=== PATIENT | female | born 1940 | race Caucasian/White ===

== ENCOUNTER 2017-07-15 19:00 | Emergency (ER) | payer MEDICARE, BC ==
--- NOTE | 2017-07-15 19:17 | EDM.PDOC ---
ED HPI GENERAL MEDICAL PROBLEM - General Chief Complaint: Cardiovascular Problem Stated Complaint: HEART ISSUES Time Seen by Provider: 07/15/17 19:10 Source of Information: Reports: Patient, Old Records History Limitations: Reports: No Limitations - History of Present Illness INITIAL COMMENTS - FREE TEXT/NARRATIVE: 76 yo female presents with mild anterior chest pressure and an irregular/fast heart beat. She has a pHx of intermittent afib controlled with sotalol. Has not missed any doses. The last time she experienced this situation was last August and she ended up converting back to a regular, non-atrial fib rhythm in the ER before any interventions were started. Sx's tonight started about 1730h. Has no nausea, SOB, or diaphoresis. Thought at first her sx's were from indigestion. 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 agricultural education professor. 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) (none) chest tightness Pain Score (Numeric/FACES): 2 - Related Data Allergies Allergy/AdvReac Type Severity Reaction Status Date / Time cephalexin monohydrate Allergy Unknown Rash Verified 07/15/17 19:08 [From Keflex] codeine Allergy Dizziness Verified 07/15/17 19:08 Iodinated Contrast- Oral and Allergy Swelling Verified 07/15/17 19:08 IV Dye [Iodinated Contrast Media - IV Dye] medroxyprogesterone acetate Allergy Change Verified 07/15/17 19:08 [From Provera] Mental Status captopril AdvReac Cough Verified 07/15/17 19:08 enalapril maleate AdvReac Nausea Verified 07/15/17 19:08 [From Vasotec] enalaprilat dihydrate AdvReac Nausea Verified 07/15/17 19:08 [From Vasotec] lisinopril AdvReac Cough Verified 07/15/17 19:08 metoprolol AdvReac Leg Cramps Verified 07/15/17 19:08 terazosin HCl [From Hytrin] AdvReac Fatigue Verified 07/15/17 19:08 Home Meds: Home Meds Acetaminophen [Tylenol Extra Strength] 500 mg PO Q6HR PRN 08/21/13 [History] Calcium Carbonate 600 mg PO DAILY 08/21/13 [History] Hydrochlorothiazide 25 mg PO DAILY 08/21/13 [History] Latanoprost [Xalatan] 1 drp EYEBOTH BEDTIME 08/21/13 [History] Levothyroxine Sodium [Synthroid] 75 mcg PO DAILY 08/21/13 [History] Magnesium 250 mg PO DAILY 08/21/13 [History] Melatonin 3 mg PO BEDTIME PRN 08/21/13 [History] Polyethylene Glycol 3350 [Miralax] 17 gm PO DAILY PRN 08/21/13 [History] Pravastatin [Pravachol] 40 mg PO BEDTIME 08/21/13 [History] Sotalol [Betapace, Sorine] 80 mg PO BID 08/21/13 [History] amLODIPine [Norvasc] 5 mg PO DAILY 08/21/13 [History] Cholecalciferol (Vitamin D3) [Vitamin D3] 2,000 unit PO DAILY 07/12/15 [History] Docusate Sodium [Colace] 200 mg PO DAILY 07/12/15 [History] Isosorbide Mononitrate [Imdur] 60 mg PO BID 07/12/15 [History] Naproxen Sodium [Aleve] 220 mg PO ASDIRECTED PRN 07/12/15 [History] Nitroglycerin [Nitrostat] 0.4 mg SL ASDIRECTED PRN 07/12/15 [History] Pantoprazole [Protonix] 40 mg PO DAILY 07/12/15 [History] diphenhydrAMINE [Benadryl] 25 mg PO BEDTIME PRN 07/12/15 [History] ClonazePAM [KlonoPIN] 0.5 mg PO ASDIRECTED PRN 07/15/17 [History] Warfarin Sodium [Warfarin Sodium] 2.5 mg PO DAILY 07/15/17 [History] prednisoLONE Acetate [Pred Forte 1% Ophth Susp] 1 drop EYEBOTH QID 07/15/17 [ History] Past Medical History HEENT History: Reports: Cataract, Hard of Hearing, Impaired Vision Cardiovascular History: Reports: Afib, Angina, Heart Murmur, High Cholesterol, Hypertension, Pacemaker, SOB on Exertion, Stents Gastrointestinal History: Reports: Chronic Constipation, Hemorrhoids 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: Musculoskeletal History: Reports: Arthritis, Back Pain, Chronic Neurological History: Reports: Neuropathy, Peripheral, Other (See Below) Other Neuro History: toes Endocrine/Metabolic History: Reports: Hypothyroidism - Infectious Disease History Infectious Disease History: Reports: Chicken Pox, Measles, Mumps - Past Surgical History Cardiovascular Surgical History: Reports: Coronary Artery Stent, Pacer Female Surgical History: Reports: Breast Biopsy, Hysterectomy, Salpingo- Oophorectomy Musculoskeletal Surgical History: Reports: Shoulder Surgery, Other (See Below) Social & Family History - Tobacco Use Smoking Status *Q: Never Smoker Second Hand Smoke Exposure: No - Caffeine Use Caffeine Use: Reports: Coffee - Recreational Drug Use Recreational Drug Use: No ED ROS GENERAL - Review of Systems Review Of Systems: See Below Constitutional: Reports: No Symptoms HEENT: Reports: No Symptoms Respiratory: Reports: No Symptoms Cardiovascular: Reports: Chest Pain (mild central, anterior chest tightness), Palpitations Endocrine: Reports: No Symptoms GI/Abdominal: Reports: No Symptoms : Reports: No Symptoms Musculoskeletal: Reports: No Symptoms Skin: Reports: No Symptoms Neurological: Reports: No Symptoms ED EXAM, GENERAL - Physical Exam Exam: See Below Exam Limited By: No Limitations General Appearance: Alert, WD/WN, No Apparent Distress Eye Exam: Bilateral Eye: Normal Inspection Ears: Normal External Exam, Normal Canal, Hearing Grossly Normal, Normal TMs Ear Exam: Bilateral Ear: Auricle Normal, Canal Normal, TM normal Nose: Normal Inspection, Normal Mucosa, No Blood Throat/Mouth: Normal Inspection, Normal Lips, Normal Teeth, Normal Oropharynx, Normal Voice, No Airway Compromise Head: Atraumatic, Normocephalic Neck: Normal Inspection, Supple, Non-Tender Respiratory/Chest: No Respiratory Distress, Lungs Clear, Normal Breath Sounds, No Accessory Muscle Use Cardiovascular: Regular Rate, Rhythm, No Edema GI/Abdominal: Normal Bowel Sounds, Soft, Non-Tender, No Distention Back Exam: Normal Inspection. No: CVA Tenderness (R), CVA Tenderness (L) Extremities: Normal Inspection, Normal Range of Motion, Non-Tender, No Pedal Edema Neurological: Alert, Oriented, CN II-XII Intact, Normal Cognition, No Motor/ Sensory Deficits Psychiatric: Normal Affect, Normal Mood Skin Exam: Warm, Dry, Intact, Normal Color, No Rash Lymphatic: No Adenopathy EKG INTERPRETATION EKG Date: 07/15/17 Time: 19:05 Rhythm: A-Fib Rate (Beats/Min): 122 [place]: LAD-Left [place] Deviation P-Wave: Absent QRS: Normal ST-T: Normal QT: Normal Comparison: Change From Previous EKG EKG Interpretation Comments: previous EKG showed a regular rhythm with atrial pacer. Course - Vital Signs Text/Narrative:: Case discussed with [facility] @ 1940h. Last Recorded V/S: Last Vital Signs Temp 37.1 C 07/15/17 19:15 Pulse 110 H 07/15/17 19:30 Resp 19 07/15/17 19:30 BP 139/82 07/15/17 19:30 Pulse Ox 95 07/15/17 19:30 - Orders/Labs/Meds Orders: Active Orders 24 hr Category Date Time Status Cardiac Monitoring [RC] .As Directed Care 07/15/17 19:13 Active EKG Documentation Completion [RC] ASDIRECTED Care 07/15/17 19:13 Active Sodium Chloride 0.9% [Saline Flush] Med 07/15/17 19:28 Active 10 ml FLUSH ASDIRECTED PRN Saline Lock Insert [OM.PC] Routine Oth 07/15/17 19:28 Ordered EKG 12 Lead [EK] Routine Ther 07/15/17 19:13 Ordered Medication Orders Sodium Chloride (Saline Flush) 10 ml FLUSH ASDIRECTED PRN PRN Reason: Keep Vein Open Last Admin: 07/15/17 19:56 Dose: 10 ml Labs: Laboratory Tests 07/15/17 07/15/17 07/15/17 Range/Units 19:28 19:28 19:28 WBC 8.0 (4.5-11.0) K/uL RBC 4.45 (3.30-5.50) M/uL Hgb 13.3 (12.0-15.0) g/dL Hct 37.7 (36.0-48.0) % MCV 85 (80-98) fL MCH 30 (27-31) pg MCHC 35 (32-36) % Plt Count 275 (150-400) K/uL PT 24.3 H (9.5-12.0) sec INR 2.20 H (0.80-1.20) Sodium 129 L (140-148) mmol/L Potassium 3.4 L (3.6-5.2) mmol/L Chloride 93 L (100-108) mmol/L Carbon Dioxide 28 (21-32) mmol/L Anion Gap 11.4 (5.0-14.0) mmol/L BUN 15 (7-18) mg/dL Creatinine 1.0 (0.6-1.0) mg/dL Est Cr Clr Drug Dosing 36.67 mL/min Estimated GFR (MDRD) 54 L (>60) Glucose 111 H (74-106) mg/dL Calcium 8.9 (8.5-10.1) mg/dL Magnesium 1.9 (1.8-2.4) mg/dL Troponin I < 0.017 (0.000-0.056) ng/mL Meds: Medications Generic Name Dose Route Start Last Admin Trade Name Freq PRN Reason Stop Dose Admin Sodium Chloride 10 ml 07/15/17 19:28 07/15/17 19:56 Saline Flush FLUSH 10 ml ASDIRECTED PRN Administration Keep Vein Open Discontinued Medications Generic Name Dose Route Start Last Admin Trade Name Freq PRN Reason Stop Dose Admin Diltiazem HCl 30 mg 07/15/17 19:44 07/15/17 19:50 Cardizem PO 07/15/17 19:45 30 mg ONETIME ONE Administration Potassium Chloride 20 meq 07/15/17 20:16 07/15/17 20:22 Potassium Chloride PO 07/15/17 20:17 20 meq ONETIME ONE Administration Departure - Departure Time of Disposition: 20:30 Disposition: Home, Self-Care 01 Condition: Good Clinical Impression: Paroxysmal atrial fibrillation Referrals: Joseph Ratliff MD [Primary Care Provider] - Forms: ED Department Discharge - My Orders Last 24 Hours: My Active Orders 07/15/17 19:13 Cardiac Monitoring [RC] .As Directed EKG Documentation Completion [RC] ASDIRECTED EKG 12 Lead [EK] Routine 07/15/17 19:28 Sodium Chloride 0.9% [Saline Flush] 10 ml FLUSH ASDIRECTED PRN Saline Lock Insert [OM.PC] Routine - Assessment/Plan Last 24 Hours: My Active Orders 07/15/17 19:13 Cardiac Monitoring [RC] .As Directed EKG Documentation Completion [RC] ASDIRECTED EKG 12 Lead [EK] Routine 07/15/17 19:28 Sodium Chloride 0.9% [Saline Flush] 10 ml FLUSH ASDIRECTED PRN Saline Lock Insert [OM.PC] Routine
[2017-07-15] MEDS ORDERED: Sodium Chloride 0.9% 10 ML Syringe FLUSH PRN (19:28)
[2017-07-15] MEDS ORDERED: Diltiazem IR 30 MG Tab PO ONE (19:44)
[2017-07-15] MEDS ORDERED: Potassium Chloride 10 MEQ Cap.ER PO ONE (20:16)
[2017-07-15] MEDS ORDERED: Diltiazem 120 MG Cap.CD PO ONE (20:31)
[2017-07-15 20:58] VITALS: BP 148/73
== END 2017-07-15 21:01 | disposition home or self-care (01) ==
LOC: JP.ED 19:00
DX: I48.0 Paroxysmal atrial fibrillation (principal); Z79.899 Other long term (current) drug therapy; I10 Essential (primary) hypertension; Z88.1 Allergy status to other antibiotic agents; Z88.8 Allergy status to other drugs, medicaments and biological substances; Z91.041 Radiographic dye allergy status; E78.00 Pure hypercholesterolemia, unspecified
CPT/HCPCS: 36415; 80048; 83735; 84484; 85027; 85610; 93005; 99285; A9270; J7050; 93010

== ENCOUNTER 2019-01-19 06:35 | Day surgery (SDC) | payer MEDICARE, BC ==
[2019-01-19] MEDS ORDERED: Dextrose 5%-Lactated Ringers 1,000 ML IV SCH (07:00)
[2019-01-19] MEDS ORDERED: Propofol 200 MG/20 ML SDV ONE (07:07)
[2019-01-19] MEDS ORDERED: fentaNYL 100 MCG/2 ML SDV ONE (07:08)
[2019-01-19 11:26] VITALS: BP 151/80; PULSE 60
--- NOTE | 2019-02-05 15:41 | OR ---
DATE OF PROCEDURE: 01/19/2019 PREOPERATIVE DIAGNOSES: 1. History of Bronson esophagus. 2. Indication for screening colonoscopy. POSTOPERATIVE DIAGNOSES: 1. 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 2. Sigmoid colon diverticulosis. OPERATIVE PROCEDURES: 1. Esophagogastroduodenoscopy with. a. Biopsy of esophagogastric junction for histologic evaluation. b. Biopsies of the antrum for CLOtest (45136). 2. Flexible colonoscopy (69020). ANESTHESIA: IV sedation. INDICATION FOR PROCEDURE: An 78-year-old female presenting for followup of Bronson esophagus, who also meets indications for screening colonoscopy with the biopsies and then polypectomy as indicated. Potential risks including bleeding and perforation were discussed, and the patient wishes to proceed. DETAILS OF PROCEDURE: The patient was taken to the operating room and placed in a left lateral decubitus position. IV sedation was administered, after which the upper GI endoscope was passed orally through the length of the esophagus into the stomach with retroflexion view of the fundus, thereafter through the pyloric channel into the junction of the third and fourth portions of the duodenum. Findings included normal hypopharynx, larynx, upper esophageal sphincter, and esophageal body. At the EG junction, a small hiatal hernia was present. There was some upward extension of the gastroesophageal junction mucosal line above the upper gastric folds consistent with a known history of Bronson esophagus. There was no plaquing or stricturing i.e., no signs of neoplastic change was seen and the amount of inflammation was minimal if any. Within the stomach, the patient was noted to have perhaps some minimal antral gastritis but otherwise, the remainder of the epigastric and duodenal exams were unremarkable. Biopsies were then obtained from the antrum and sent for CLOtest for H. pylori, and then multiple biopsies were then obtained from the esophagogastric junction, sent for histologic evaluation. No bleeding from the biopsy sites was seen and the procedure was then concluded. The patient was taken to the colonoscopy. The initial digital rectal exam that was performed was unremarkable. Colonoscope was then passed into the rectum with retroflexion revealing uncomplicated hemorrhoidal columns. The scope was then passed to the level of the cecum. The prep was quite good with there only being a small amount of liquid stool present and the patient was noted to have some uncomplicated left colonic diverticulosis, otherwise no abnormalities were noted. Specifically, there were no areas of colitis and no other areas of polyps or signs of neoplasia. The scope was then withdrawn, the above findings reconfirmed, and the procedure was then concluded. The plan will be to continue the present medical management and the patient assuming that there is no dysplastic changes on the Bronson esophagus, if her medical condition remains satisfactory, she will undergo a followup upper endoscopy for surveillance of Bronson esophagus in roughly 2 years. Donell Gallegos MD /[id number]
== END 2019-01-19 11:00 | disposition home or self-care (01) ==
LOC: JP.SDS 06:35
PROVIDERS: ATTEND Surgery
DX: Z12.11 Encounter for screening for malignant neoplasm of colon (principal); K57.30 Diverticulosis of large intestine without perforation or abscess without bleeding; K64.9 Unspecified hemorrhoids; K22.70 Barrett's esophagus without dysplasia; K29.70 Gastritis, unspecified, without bleeding; K44.9 Diaphragmatic hernia without obstruction or gangrene; K21.9 Gastro-esophageal reflux disease without esophagitis; I25.10 Atherosclerotic heart disease of native coronary artery without angina pectoris; G47.33 Obstructive sleep apnea (adult) (pediatric); Z95.5 Presence of coronary angioplasty implant and graft; Z95.0 Presence of cardiac pacemaker; Z85.038 Personal history of other malignant neoplasm of large intestine; Z86.73 Personal history of transient ischemic attack (TIA), and cerebral infarction without residual deficits
CPT/HCPCS: 43239; 87081; 88305; G0105; J2704; J3010; J7042

== ENCOUNTER 2020-12-13 10:55 | Emergency (ER) | payer MEDICARE, BC ==
[2020-12-13 11:19] VITALS: PULSE 60
--- NOTE | 2020-12-13 11:52 | EDM.PDOC ---
ED HPI GENERAL MEDICAL PROBLEM - General Chief Complaint: General Stated Complaint: LIGHT HEADED\CHEST PRESSURE DURING CARDIAC REHAB Time Seen by Provider: 12/13/20 11:30 Source of Information: Reports: Patient, Old Records, RN History Limitations: Reports: No Limitations - History of Present Illness INITIAL COMMENTS - FREE TEXT/NARRATIVE: 80 yo female was at cardiac rehab this morning for 2 vessel stenting done in [place] mid October of this year. While exercising at a level of 3/10 she developed mild chest tightness and light-headedness. The chest tightness resolved with rest. The light-headedness lingered so she came to the ER. She has had spells of this same light-headedness at home recently as well. She has not missed any of her meds or been ill in any way recently. 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: Other (see below) (none) - Related Data Allergies Allergy/AdvReac Type Severity Reaction Status Date / Time cephalexin monohydrate Allergy Unknown Rash Verified 12/13/20 11:23 [From Keflex] Iodinated Contrast Media Allergy Swelling Verified 12/13/20 11:23 [Iodinated Contrast Media - IV Dye] metoprolol AdvReac Leg Cramps Verified 12/13/20 11:23 Home Meds: Home Meds Acetaminophen [Tylenol Extra Strength] 500 mg PO Q6HR PRN 08/21/13 [History] Calcium Carbonate 600 mg PO DAILY 08/21/13 [History] Latanoprost [Xalatan] 1 drp EYEBOTH BEDTIME 08/21/13 [History] Levothyroxine Sodium [Synthroid] 75 mcg PO DAILY 08/21/13 [History] Pravastatin [Pravachol] 80 mg PO BEDTIME 08/21/13 [History] Sotalol [Betapace, Sorine] 80 mg PO BID 08/21/13 [History] amLODIPine [Norvasc] 10 mg PO DAILY 08/21/13 [History] polyethylene glycoL 3350 [Miralax] 17 gm PO DAILY PRN 08/21/13 [History] Cholecalciferol (Vitamin D3) [Vitamin D3] 2,000 unit PO DAILY 07/12/15 [History] Nitroglycerin [Nitrostat] 0.4 mg SL ASDIRECTED PRN 07/12/15 [History] Pantoprazole [Protonix] 40 mg PO DAILY 07/12/15 [History] ClonazePAM [KlonoPIN] 0.25 mg PO ASDIRECTED PRN 07/15/17 [History] Warfarin Sodium 2.5 mg PO ASDIRECTED 07/15/17 [History] Alum Hydrox/Mag Hydrox/Simeth [Maalox Advanced] 15 ml PO Q4HR PRN 01/17/19 [History] Carboxymethylcellulose Sodium [Refresh Liquigel 1%] 1 drop EYEBOTH DAILY 01/17/19 [History] Docusate Sodium [DOK] 250 mg PO BEDTIME 01/17/19 [History] Potassium Chloride [Klor-Con 10] 10 meq PO DAILY 01/17/19 [History] Clopidogrel [Plavix] 1 tab PO DAILY 12/13/20 [History] Past Medical History HEENT History: Reports: Cataract, Hard of Hearing, Impaired Vision Cardiovascular History: Reports: Afib, Angina, CAD, Heart Murmur, High Cholesterol, Hypertension, Pacemaker, SOB on Exertion, Stents Respiratory History: Reports: Sleep Apnea Gastrointestinal History: Reports: Chronic Constipation, GERD, Hemorrhoids Genitourinary History: Reports: None 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: Dysfunctional Uterine Bleeding, Fibroids, Musculoskeletal History: Reports: Back Pain, Chronic, Osteoarthritis Neurological History: Reports: Neuropathy, Peripheral, TIA, Other (See Below) Other Neuro History: toes Endocrine/Metabolic History: Reports: Hypothyroidism Hematologic History: Reports: Anticoagulation Therapy Dermatologic History: Reports: Other (See Below) Other Dermatologic History: dry - Infectious Disease History Infectious Disease History: Reports: Chicken Pox, Measles, Mumps, Pertussis (Whooping Cough) - Past Surgical History HEENT Surgical History: Reports: Cataract Surgery Cardiovascular Surgical History: Reports: Coronary Artery Stent, Pacer Other Cardiovascular Surgeries/Procedures: x2 stents placed on 2013 Respiratory Surgical History: Reports: None GI Surgical History: Reports: Colonoscopy, EGD Female Surgical History: Reports: Breast Biopsy, Hysterectomy, Salpingo-Oophorectomy Neurological Surgical History: Reports: None Musculoskeletal Surgical History: Reports: Shoulder Surgery, Other (See Below) Other Musculoskeletal Surgeries/Procedures:: right shoulder scope Social & Family History - Tobacco Use Tobacco Use Status *Q: Never Tobacco User - Caffeine Use Caffeine Use: Reports: Coffee ED ROS GENERAL - Review of Systems Review Of Systems: See Below Constitutional: Reports: No Symptoms. Denies: Diaphoresis HEENT: Reports: No Symptoms Respiratory: Reports: No Symptoms Cardiovascular: Reports: Chest Pain (tightness, resolved with rest), Blood Pressure Problem (was high at rehab, but came down to 130's with rest while there.), Dyspnea on Exertion (not worse), Lightheadedness (during and after exercise) GI/Abdominal: Reports: No Symptoms Musculoskeletal: Reports: No Symptoms Skin: Reports: No Symptoms Neurological: Reports: No Symptoms ED EXAM, GENERAL - Physical Exam Exam: See Below Exam Limited By: No Limitations General Appearance: Alert, WD/WN, No Apparent Distress Eye Exam: Bilateral Eye: Normal Inspection Ears: Normal External Exam, Normal Canal, Hearing Grossly Normal Ear Exam: Bilateral Ear: Auricle Normal, Canal Normal Nose: Normal Inspection, No Blood Throat/Mouth: Normal Inspection, Normal Lips, Normal Oropharynx, Normal Voice, No Airway Compromise Head: Atraumatic, Normocephalic Neck: Normal Inspection Respiratory/Chest: No Respiratory Distress, Lungs Clear, Normal Breath Sounds, No Accessory Muscle Use Cardiovascular: Regular Rate, Rhythm, No Edema GI/Abdominal: Normal Bowel Sounds, Soft, Non-Tender, No Distention Extremities: Normal Inspection, Normal Range of Motion, Non-Tender, No Pedal Edema. No: Abdirahman's Sign Neurological: Alert, Oriented, CN II-XII Intact, Normal Cognition, No Motor/Sensory Deficits Psychiatric: Normal Affect, Normal Mood Skin Exam: Warm, Dry, Intact, Normal Color, No Rash Course - Vital Signs Last Recorded V/S: Last Vital Signs Temp 35.4 C L 12/13/20 11:33 Pulse 60 12/13/20 12:38 Resp 17 12/13/20 12:38 BP 162/72 H 12/13/20 12:38 Pulse Ox 93 L 12/13/20 12:38 - Orders/Labs/Meds Orders: Active Orders 24 hr Category Date Time Status Cardiac Monitoring [RC] .As Directed Care 12/13/20 11:43 Active Labs: Laboratory Tests 12/13/20 12/13/20 12/13/20 Range/Units 11:44 11:57 11:57 WBC 6.3 (4.5-11.0) K/uL RBC 4.49 (3.30-5.50) M/uL Hgb 13.1 (12.0-15.0) g/dL Hct 39.8 (36.0-48.0) % MCV 89 (80-98) fL MCH 29 (27-31) pg MCHC 33 (32-36) % Plt Count 270 (150-400) K/uL Sodium 134 L (140-148) mmol/L Potassium 4.5 (3.6-5.2) mmol/L Chloride 99 L (100-108) mmol/L Carbon Dioxide 25 (21-32) mmol/L Anion Gap 14.5 H (5.0-14.0) mmol/L BUN 15 (7-18) mg/dL Creatinine 1.0 (0.6-1.0) mg/dL Est Cr Clr Drug Dosing 34.30 mL/min Estimated GFR (MDRD) 53 L (>60) Glucose 98 (74-106) mg/dL Calcium 8.9 (8.5-10.1) mg/dL Troponin I < 0.017 (0.000-0.056) ng/mL Urine Color Yellow (YELLOW) Urine Appearance Clear (CLEAR) Urine pH 7.5 (5.0-8.0) Ur Specific [place] 1.015 (1.008-1.030) Urine Protein Negative (NEGATIVE) mg/dL Urine Glucose (UA) Negative (NEGATIVE) mg/dL Urine Ketones Negative (NEGATIVE) mg/dL Urine Occult Blood Negative (NEGATIVE) Urine Nitrite Negative (NEGATIVE) Urine Bilirubin Negative (NEGATIVE) Urine Urobilinogen 0.2 (0.2-1.0) EU/dL Ur Leukocyte Esterase Negative (NEGATIVE) Urine RBC 0-5 (0-5) Urine WBC 0-5 (0-5) Ur Epithelial Cells Rare Amorphous Sediment Not seen Urine Bacteria Not seen Urine Mucus Not seen - Re-Assessments/Exams Free Text/Narrative Re-Assessment/Exam: 12/13/20 13:46 BP eventually came down to 140 without tx. Walked our loop without dizziness or CP. Departure - Departure Time of Disposition: 13:47 Disposition: Home, Self-Care 01 Condition: Fair Clinical Impression: Light headedness - Discharge Information *PRESCRIPTION DRUG MONITORING PROGRAM REVIEWED*: No *COPY OF PRESCRIPTION DRUG MONITORING REPORT IN PATIENT PINED[place]: No Referrals: Joseph Ratliff MD [Primary Care Provider] - Forms: ED Department Discharge Additional Instructions: Continue your current medications. Discuss your symptoms with your packager machine and see if he wants to see you or make any changes. Return here if worse. Sepsis Event Note (ED) - Evaluation Sepsis Screening Result: No Definite Risk - Focused Exam Vital Signs: Vital Signs Temp Pulse Resp BP Pulse Ox 12/13/20 12:38 60 17 162/72 H 93 L 12/13/20 12:34 60 9 L 159/80 H 97 12/13/20 12:08 60 19 180/77 H 92 L 12/13/20 11:38 60 13 180/78 H 95 12/13/20 11:33 35.4 C L 60 11 L 184/84 H 97 12/13/20 11:18 35.4 C L 60 11 L 196/93 H 97 12/13/20 11:17 60 21 H 181/84 H 93 L - My Orders Last 24 Hours: My Active Orders 12/13/20 11:43 Cardiac Monitoring [RC] .As Directed - Assessment/Plan Last 24 Hours: My Active Orders 12/13/20 11:43 Cardiac Monitoring [RC] .As Directed
[2020-12-13 12:46] VITALS: BP 162/72
== END 2020-12-13 14:35 | disposition home or self-care (01) ==
LOC: JP.ED 10:55
DX: R42 Dizziness and giddiness (principal); I48.91 Unspecified atrial fibrillation; I25.10 Atherosclerotic heart disease of native coronary artery without angina pectoris; E78.00 Pure hypercholesterolemia, unspecified; I10 Essential (primary) hypertension; G62.9 Polyneuropathy, unspecified; E03.9 Hypothyroidism, unspecified; Z88.1 Allergy status to other antibiotic agents; Z91.041 Radiographic dye allergy status; Z88.8 Allergy status to other drugs, medicaments and biological substances; Z86.73 Personal history of transient ischemic attack (TIA), and cerebral infarction without residual deficits
CPT/HCPCS: 36415; 80048; 81001; 84484; 85027; 99283; 99284

== ENCOUNTER 2021-09-02 06:52 | Day surgery (SDC) | payer MEDICARE, BC ==
[2021-09-02] MEDS ORDERED: Propofol 200 MG/20 ML SDV ONE (07:06)
[2021-09-02] MEDS ORDERED: fentaNYL 100 MCG/2 ML SDV ONE (07:07)
[2021-09-02] MEDS ORDERED: Dextrose 5%-Lactated Ringers 1,000 ML IV SCH (07:30)
[2021-09-02 10:33] VITALS: BP 142/83; PULSE 62
== END 2021-09-02 11:11 | disposition home or self-care (01) ==
LOC: JP.SDS 06:52
PROVIDERS: ATTEND Surgery
DX: K29.90 Gastroduodenitis, unspecified, without bleeding (principal); K44.9 Diaphragmatic hernia without obstruction or gangrene; K21.00 Gastro-esophageal reflux disease with esophagitis, without bleeding; G47.33 Obstructive sleep apnea (adult) (pediatric); I25.10 Atherosclerotic heart disease of native coronary artery without angina pectoris; I10 Essential (primary) hypertension; I48.91 Unspecified atrial fibrillation; Z87.19 Personal history of other diseases of the digestive system; Z86.73 Personal history of transient ischemic attack (TIA), and cerebral infarction without residual deficits
CPT/HCPCS: 43239; 87081; 88305; J2704; J3010; J7121

== ENCOUNTER 2021-09-07 15:21 | Emergency (ER) | payer MEDICARE, BC ==
[2021-09-07 16:53] VITALS: BP 175/83; PULSE 60
== END 2021-09-07 17:05 | disposition home or self-care (01) ==
LOC: JP.ED 15:21
DX: I48.91 Unspecified atrial fibrillation (principal); I25.119 Atherosclerotic heart disease of native coronary artery with unspecified angina pectoris; E78.00 Pure hypercholesterolemia, unspecified; I10 Essential (primary) hypertension; K21.9 Gastro-esophageal reflux disease without esophagitis; M19.90 Unspecified osteoarthritis, unspecified site; E03.9 Hypothyroidism, unspecified; Z95.0 Presence of cardiac pacemaker; Z88.1 Allergy status to other antibiotic agents; Z88.8 Allergy status to other drugs, medicaments and biological substances; Z91.041 Radiographic dye allergy status; Z79.01 Long term (current) use of anticoagulants; Z79.02 Long term (current) use of antithrombotics/antiplatelets; Z79.899 Other long term (current) drug therapy
CPT/HCPCS: 36415; 80048; 83735; 84439; 84443; 84484; 85025; 93005; 99285-25

== ENCOUNTER 2021-09-24 20:53 | Emergency (ER) | payer MEDICARE, BC ==
[2021-09-24 22:11] VITALS: BP 155/78; PULSE 60
== END 2021-09-24 22:40 | disposition home or self-care (01) ==
LOC: JP.ED 20:53
DX: I48.91 Unspecified atrial fibrillation (principal); I48.92 Unspecified atrial flutter; I25.119 Atherosclerotic heart disease of native coronary artery with unspecified angina pectoris; E78.00 Pure hypercholesterolemia, unspecified; I10 Essential (primary) hypertension; M19.90 Unspecified osteoarthritis, unspecified site; E03.9 Hypothyroidism, unspecified; Z86.73 Personal history of transient ischemic attack (TIA), and cerebral infarction without residual deficits; Z95.0 Presence of cardiac pacemaker; Z88.1 Allergy status to other antibiotic agents; Z91.041 Radiographic dye allergy status; Z88.8 Allergy status to other drugs, medicaments and biological substances
CPT/HCPCS: 36415; 84484; 93005; 93010; 99282; 99285-25

== ENCOUNTER 2021-10-03 13:21 | Emergency (ER) | payer MEDICARE, BC ==
[2021-10-03 13:37] VITALS: BP 193/107; PULSE 78
== END 2021-10-03 15:03 | disposition home or self-care (01) ==
LOC: JP.ED 13:21
DX: R20.2 Paresthesia of skin (principal); I48.91 Unspecified atrial fibrillation; I10 Essential (primary) hypertension; I25.10 Atherosclerotic heart disease of native coronary artery without angina pectoris; K21.9 Gastro-esophageal reflux disease without esophagitis; F41.9 Anxiety disorder, unspecified; E03.9 Hypothyroidism, unspecified; Z79.01 Long term (current) use of anticoagulants; Z79.899 Other long term (current) drug therapy; Z88.1 Allergy status to other antibiotic agents; Z91.041 Radiographic dye allergy status; Z88.8 Allergy status to other drugs, medicaments and biological substances
CPT/HCPCS: 99282; 99283

== ENCOUNTER 2022-07-02 06:25 | Day surgery (SDC) | payer MEDICARE, BC ==
[2022-07-02] MEDS ORDERED: Dextrose 5%-Lactated Ringers 1,000 ML IV SCH (07:00)
[2022-07-02] MEDS ORDERED: Propofol 200 MG/20 ML SDV ONE ×2 (07:14→07:30)
[2022-07-02 09:55] VITALS: BP 153/75; PULSE 61
== END 2022-07-02 10:15 | disposition home or self-care (01) ==
LOC: JP.SDS 06:25
PROVIDERS: ATTEND Surgery
DX: K21.00 Gastro-esophageal reflux disease with esophagitis, without bleeding (principal); K29.60 Other gastritis without bleeding; K44.9 Diaphragmatic hernia without obstruction or gangrene; E78.00 Pure hypercholesterolemia, unspecified; I25.10 Atherosclerotic heart disease of native coronary artery without angina pectoris; I48.91 Unspecified atrial fibrillation; I48.92 Unspecified atrial flutter; Z87.19 Personal history of other diseases of the digestive system; Z88.1 Allergy status to other antibiotic agents; Z91.041 Radiographic dye allergy status; Z88.8 Allergy status to other drugs, medicaments and biological substances; Z79.899 Other long term (current) drug therapy
CPT/HCPCS: 43239; 87081; 88305; 88342; J2704; J7121

== ENCOUNTER 2023-03-10 16:44 | Emergency (ER) | payer MEDICARE, BC ==
[2023-03-10 17:32] VITALS: PULSE 59
[2023-03-10 17:50] LABS: PROTHROMBIN TIME 28.5 sec (9.2-10.6)
[2023-03-10 18:14] VITALS: BP 156/81
== END 2023-03-10 18:37 | disposition home or self-care (01) ==
LOC: JP.ED 16:44
DX: S00.03XA Contusion of scalp, initial encounter (principal); I48.20 Chronic atrial fibrillation, unspecified; I25.119 Atherosclerotic heart disease of native coronary artery with unspecified angina pectoris; E78.00 Pure hypercholesterolemia, unspecified; I10 Essential (primary) hypertension; K21.9 Gastro-esophageal reflux disease without esophagitis; Z86.73 Personal history of transient ischemic attack (TIA), and cerebral infarction without residual deficits; Z95.0 Presence of cardiac pacemaker; Z88.1 Allergy status to other antibiotic agents; Z88.8 Allergy status to other drugs, medicaments and biological substances; Z79.899 Other long term (current) drug therapy; Z79.01 Long term (current) use of anticoagulants; W18.30XA Fall on same level, unspecified, initial encounter; Y92.009 Unspecified place in unspecified non-institutional (private) residence as the place of occurrence of the external cause
CPT/HCPCS: 36415; 70450; 85610; 99284